=== PATIENT | male | born 1970 | race Caucasian/White ===

== ENCOUNTER → 2018-02-07 15:12 | Outpatient (CLI) | payer BC, SELFPAY ==
--- NOTE | 2018-02-07 11:45 | LES_PTH ---
PATIENT: EUSEBIO QUEZADA LOC: ED U#:[id number] AGE/SX: 54/M ROOM: RE02/07/[address]: Dr. Shree Tejeda MD : 1970 BED: DIS: SPEC #: [id number] RECD: 02/07/18 14:03 STATUS: AVELINA ADRI #: [id number] KAI: 02/07/18 11:[address]: Shree Tejeda DEPT: SURGICAL PATHOLOGY RECD BY: Karina Pino Tissues: Skin of axilla, NOS Procedures: Surgery Specimen Level IV HEADER OPERATION: Suspicious skin lesion removal PRE-OP DIAGNOSIS: Suspicious skin lesion TISSUE SUBMITTED: Left axilla lesion MICROSCOPIC DIAGNOSIS Skin lesion of left axilla, biopsy: Compound nevus. AM:kimmy 02/08/18 COMMENT Case has been reviewed in consultation with Dr. Cummings who concurs with the above diagnosis. IDC:SJ MICROSCOPIC DESCRIPTION Slides are reviewed. GROSS DESCRIPTION Received in fixative is one container labeled with the patient's name and designated left axilla lesion. The specimen consists of a piece of hua-white skin measuring 0.3 x 0.2 x 0.1 cm. The specimen is totally submitted in one cassette. / SJ:rg 02/07/18 TC:5 [facility]: [id number]
== END ==
PROVIDERS: Visit Provider Family Medicine
DX: L98.9 Disorder of the skin and subcutaneous tissue, unspecified (principal)
CPT/HCPCS: 88305

== ENCOUNTER → 2018-09-07 10:20 | Outpatient (CLI) | payer BC, SELFPAY ==
[2016-10-30 13:44] VITALS: BMI 27.5
--- NOTE | 2018-09-07 10:24 | RAD_ITS ---
STUDY: X-RAY - RIGHT KNEE REASON FOR EXAM: Male, 47 years old. Trauma TECHNIQUE: 4 view(s) of the knee. COMPARISON: None. FINDINGS: There is no evidence of fracture or dislocation. There is a small suprapatellar joint effusion. There are no significant degenerative changes. There are no radiodense foreign bodies. RAD/Knee 4 or More Views IMPRESSION: No fracture or dislocation. Small joint effusion. Electronically Signed: Brody Baron, at 11:09 EDT Tel , Service support ,
== END ==
PROVIDERS: Family Provider Family Medicine; PCP Family Medicine; Referring Provider Family Medicine; Visit Provider Family Medicine
DX: S83.91XA Sprain of unspecified site of right knee, initial encounter (principal)
CPT/HCPCS: 73564

== ENCOUNTER → 2019-04-24 14:54 | Outpatient (CLI) | payer BC, SELFPAY ==
[2016-10-30 13:44] VITALS: BMI 27.5
[2019-04-24 14:58] LABS: Lyme Ab Screen Interpretation REF LAB
[2019-04-24 18:20] LABS: Iron 110 ug/dL (65-175); Magnesium 2.3 mg/dL (1.6-2.6)
[2019-04-26 15:02] LABS: Lyme Scn Total Ab w/Rflx <0.91 ISR (0.00-0.90)
== END ==
PROVIDERS: Family Provider Family Medicine; PCP Family Medicine; Visit Provider Nurse Practitioner Adult Health
DX: R25.2 Cramp and spasm (principal); W57.XXXA Bitten or stung by nonvenomous insect and other nonvenomous arthropods, initial encounter
CPT/HCPCS: 36415; 83540; 83735; 86618